=== PATIENT | female | born 1985 | race Caucasian/White ===

== ENCOUNTER 2016-09-23 23:34 | Inpatient (IN) | payer MEDICAID ==
[~2016-09-23] VITALS: Ht 157.5 cm; Wt 58.1 kg
[~2016-09-23 23:34] MED LIST: BENZ56AE TP; DCS100C PO; FRS325T PO; IBP600T1 PO; PREN1TAB19 PO
[2016-09-23] MEDS ORDERED: D5 LR IV SOLUTION 1,000 ML IV ONE (23:46)
[2016-09-23] MEDS ORDERED: OXYTOCIN/NORMAL SALINE 500 ML IV ONE (23:47)
[2016-09-23] MEDS ORDERED: LIDOCAINE/EPI 1%-1:200,000 (XYLOCAINE) 30 ML VIAL ONE (23:47)
[2016-09-23] MEDS ORDERED: D5 LR IV SOLUTION 1,000 ML IV SCH (23:50)
[2016-09-24] VITALS (10 sets, daily range): BP systolic 115–145; BP diastolic 73–92
[2016-09-24] MEDS ORDERED: MINERAL OIL CONCENTRATE 99.9% 15 ML UDC TOP PRN
[2016-09-24 00:12] LABS: BASOPHILS % (AUTO) 0 % (0-10); EOSINOPHILS % (AUTO) 0 % (0-10); LYMPHOCYTES # (AUTO) 1.2 X 10^3 (1.0-4.0); LYMPHOCYTES % (AUTO) 17 % (12-44); MEAN CORPUSCULAR HEMOGLOBIN 31 PG (25-34); MEAN CORPUSCULAR HGB CONC 33 G/DL (32-36); MEAN CORPUSCULAR VOLUME 92 FL (80-99); MEAN PLATELET VOLUME 11.5 FL (7.4-10.4); MONOCYTES # (AUTO) 0.5 X 10^3 (0.0-1.0); MONOCYTES % (AUTO) 7 % (0-12); NEUTROPHILS # (AUTO) 5.4 X 10^3 (1.8-7.8); NEUTROPHILS % (AUTO) 76 % (42-75); PLATELET COUNT 143 10^3/uL (130-400); RED BLOOD COUNT 3.83 10^6/uL (4.35-5.85); RED CELL DISTRIBUTION WIDTH 13.6 % (10.0-14.5); WHITE BLOOD COUNT 7.1 10^3/uL (4.3-11.0)
[2016-09-24] MEDS ORDERED: OXYTOCIN/NORMAL SALINE 500 ML IV ONE ×2 (00:26→00:50)
--- NOTE | 2016-09-24 00:35 | History & Physical-OB ---
OB - Chief Complaint & HPI Date Date of Admission: Date of Admission: Sep 23, 2016 at 23:49 Chief Complaint/History OB-Reason for Admission/Chief: Onset of Labor Hx : 5 Hx Para: 4 Expected Date of Delivery: Sep 28, 2016 Gestational Age in Weeks: 39 Gestational Age in Days: 3 Other reason for admission: 30 y/o @ 39w3d presenting with CTX since 2199 No LOF, no VB 8cm on admission, complete upon my presentation to her room and ready to push Denies any complications with Pt of Dr. Lin History of Labs O+ Antibody neg RI Hep B neg RPR NR HIV neg GC/CT neg/neg GBS neg Allergies and Home Medications Allergies Coded Allergies: No Known Drug Allergies (Unverified , 12/11/14) Home Medications Benzocaine/Menthol 56 Ml Aerosol, 56 ML TP UD PRN for PAIN, #1 Prescribed by: ILEANA MORRIS on 12/12/14 0950 Docusate Sodium 100 Mg Cap, 100 MG PO BID, #40 Prescribed by: ILEANA MORRIS on 12/12/14 0950 Ferrous Sulfate 325 Mg Tab, 325 MG PO DAILY, #60 Prescribed by: ILEANA MORRIS on 12/12/14 0950 Ibuprofen 600 Mg Tab, 600 MG PO Q6H, #60 Prescribed by: ILEANA MORRIS on 12/12/14 0950 Vit/Fe Fumarate/Fa 1 Each Tablet, 1 EACH PO DAILY, (Reported) OB - History Hx of Present Care: Yes Ultrasounds: Normal mid trimester US Obstetrical Complications: Other (h/o precipitous deliveries) Medical Complications: None Obstetrical History Hx : 5 Hx Para: 4 Hx Total # of Abortions (Spona: 0 Hx Maternal Gestational Diabet: Yes Delivery History Hx Dystocia: No Hx Small for Gestational Age I: Yes (IUGR) Hx Blood Disorders: No Adverse Rxn to Tranfusion: No Patient Past Medical History None Social History/Family History Recent Infectious Disease Expo: No Alcohol Use: Denies Use Recreational Drug Use: No OB - Admission Exam Physical Exam Vitals: per nursing documentation Abdomen: Gravid Cervical Dilatation: 10cm Effacement: 100% Station: +2 Membranes: Ruptured Amniotic Fluid: Clear Heart Rate: 130's Accelerations: Accelerations Present Decelerations: No Decelerations Short Term Variability: Present Contractions on Admission: < 5 Minutes Apart Labs Laboratory Tests Test 09/23/16 23:56 Range/Units White Blood Count 7.1 4.3-11.0 10^3/uL Red Blood Count 3.83 L 4.35-5.85 10^6/uL Hemoglobin 11.7 11.5-16.0 G/DL Hematocrit 35 35-52 % Mean Corpuscular Volume 92 80-99 FL Mean Corpuscular Hemoglobin 31 25-34 PG Mean Corpuscular Hemoglobin Concent 33 32-36 G/DL Red Cell Distribution Width 13.6 10.0-14.5 % Platelet Count 143 130-400 10^3/uL Mean Platelet Volume 11.5 H 7.4-10.4 FL Neutrophils (%) (Auto) 76 H 42-75 % Lymphocytes (%) (Auto) 17 12-44 % Monocytes (%) (Auto) 7 0-12 % Eosinophils (%) (Auto) 0 0-10 % Basophils (%) (Auto) 0 0-10 % Neutrophils # (Auto) 5.4 1.8-7.8 X 10^3 Lymphocytes # (Auto) 1.2 1.0-4.0 X 10^3 Monocytes # (Auto) 0.5 0.0-1.0 X 10^3 Eosinophils # (Auto) 0.0 0.0-0.3 10^3/uL Basophils # (Auto) 0.0 0.0-0.1 10^3/uL OB - Assessment/Plan/Diagnosis Plan Other Plan 30 y/o @ 39w3d with active labor, GBS neg Rh+ RI Underwent precipitous vaginal delivery upon my presentation Routine care Peds - Dr. Jacob GEE,ADAMA Carter MD Sep 24, 2016 00:35
--- NOTE | 2016-09-24 00:38 | OB Labor & Delivery Record ---
Vag Delivery Note Vag Delivery Note Date of Delivery: 09/24/16 Preoperative Diagnosis: Lupe Deras is a 30 y/o @ 39w3d with active labor, GBS neg Postoperative Diagnosis: Same plus precipitous vaginal delivery Surgeon: Adama Claudio MD Anesthesia: None Delivery Type: Spontaneous vaginal delivery Findings: Viable female infant, apgars 9/9, weight 8zy11es Lacerations: none Intact placenta with 3 vessel cord. No nuchal cord, body cord or shoulder dystocia Estimated Blood Loss: 300 ml Complications: None Condition: Stable Description of Procedure: The patient is a 30 y/o who presented @ 39w3d with active labor. She was admitted and informed consent was obtained. Her labor course was remarkable for AROM at complete dilatation with precipitous delivery less than 30 minutes from time of presentation. She progressed to complete dilatation and began to push. She was then set up for delivery. The 's head was delivered atraumatically in the occiput anterior position. The shoulders and remainder of the 's body were then delivered without difficulty. Upon delivery, the head was held below the level of the perineum and the mouth and nares were bulb suctioned. The infant was then placed on her mother's chest, crying vigorously. The cord was doubly clamped and cut after a brief pause of 30-60 seconds. An intact placenta with 3-vessel cord delivered via Ricardo and there was found to be minimal bleeding. Vigorous fundal massage was performed and the fundus was found to be firm. IV oxytocin was given. Examination of the vagina and perineum revealed no lacerations. Sponge and instrument counts were correct. Mom and baby were both in stable condition in the labor suite. Vitals - Labs Labs Laboratory Tests 09/23/16 23:56: White Blood Count 7.1, Red Blood Count 3.83L, Hemoglobin 11.7, Hematocrit 35, Mean Corpuscular Volume 92, Mean Corpuscular Hemoglobin 31, Mean Corpuscular Hemoglobin Concent 33, Red Cell Distribution Width 13.6, Platelet Count 143, Mean Platelet Volume 11.5H, Neutrophils (%) (Auto) 76H, Lymphocytes (%) (Auto) 17, Monocytes (%) (Auto) 7, Eosinophils (%) (Auto) 0, Basophils (%) (Auto) 0, Neutrophils # (Auto) 5.4, Lymphocytes # (Auto) 1.2, Monocytes # (Auto) 0.5, Eosinophils # (Auto) 0.0, Basophils # (Auto) 0.0 ADAMA CLAUDIO MD Sep 24, 2016 00:38
[2016-09-24] MEDS ORDERED: OXYTOCIN/NORMAL SALINE 500 ML IV SCH (00:48)
[2016-09-24] MEDS ORDERED: TETANUS,DIPTH,PERTUSS P/F (BOOSTRIX) 0.5 ML VIAL IM ONE (01:00)
[2016-09-24] MEDS ORDERED: WITCH HAZEL(TUCKS) 40 EA JAR TOP PRN (01:00)
[2016-09-24] MEDS ORDERED: MEASLES,MUMPS,RUBELLA 1 EA INJ SQ ONE (01:00)
[2016-09-24] MEDS ORDERED: BENZOCAINE/MENTHOL (DERMOPLAST) 56 ML CAN TP PRN (01:00)
[2016-09-24] MEDS: IBUPROFEN 600 MG (MOTRIN) TAB PO SCH ×4 (01:15→21:10)
[2016-09-24] MEDS ORDERED: CATHETER FLUSH 10 ML SYR IV SCH (06:00)
[2016-09-24] MEDS ORDERED: IBUP-1773 PO (08:33)
[2016-09-24] MEDS ORDERED: DOCU100C37 PO (08:33)
--- NOTE | 2016-09-24 08:34 | Discharge Inst-Women's Service ---
Discharge Inst-Women's Serv Depart Medication/Instructions New, Converted or Re-Newed RX: RX on Chart Final Diagnosis TIUP, active labor, precipitous Consults/Follow Up Additional Follow Up: Yes Orders/Referrals [address] Lin Activity Activity: Activity as Tolerated Driving Instructions: You May Drive NO SMOKING: NO SMOKING Nothing Inside Vagina: No Douching, No Bowen, No Tampons Diet Discharge Diet: No Restrictions Symptoms to Report to : Bleeding Excessive, Pain Increased, Fever Over 101 Degrees F, Pain/Pressure in Chest, Vaginal Bleeding Increase, Dizziness/Fainting , Nausea/Vomiting, Shortness of Breath For Any Problems or Questions: Contact Your Physician ADAMA GEE MD Sep 24, 2016 08:34
[2016-09-24] MEDS: PRENATAL VITAMIN 1 EA TAB PO SCH (09:51)
[2016-09-24] MEDS: DOCUSATE SODIUM 100 MG (COLACE) CAP PO SCH ×2 (09:51→21:09)
[2016-09-24] MEDS: FERROUS SULF 325 MG (IRON) TAB PO SCH (12:07)
[2016-09-25 02:30] VITALS: BP 111/65
[2016-09-25 05:39] LABS: BASOPHILS % (AUTO) 0 % (0-10); EOSINOPHILS # (AUTO) 0.1 10^3/uL (0.0-0.3); EOSINOPHILS % (AUTO) 2 % (0-10); LYMPHOCYTES # (AUTO) 1.5 X 10^3 (1.0-4.0); LYMPHOCYTES % (AUTO) 18 % (12-44); MEAN CORPUSCULAR HEMOGLOBIN 30 PG (25-34); MEAN CORPUSCULAR HGB CONC 32 G/DL (32-36); MEAN CORPUSCULAR VOLUME 93 FL (80-99); MEAN PLATELET VOLUME 11.4 FL (7.4-10.4); MONOCYTES # (AUTO) 0.7 X 10^3 (0.0-1.0); MONOCYTES % (AUTO) 9 % (0-12); NEUTROPHILS # (AUTO) 5.8 X 10^3 (1.8-7.8); NEUTROPHILS % (AUTO) 71 % (42-75); PLATELET COUNT 137 10^3/uL (130-400); RED BLOOD COUNT 3.36 10^6/uL (4.35-5.85); RED CELL DISTRIBUTION WIDTH 13.6 % (10.0-14.5); WHITE BLOOD COUNT 8.2 10^3/uL (4.3-11.0)
[2016-09-25] MEDS: IBUPROFEN 600 MG (MOTRIN) TAB PO SCH (05:41)
[2016-09-25 08:25] VITALS: BP 129/87
[2016-09-25] MEDS: DOCUSATE SODIUM 100 MG (COLACE) CAP PO SCH (08:43)
[2016-09-25] MEDS: PRENATAL VITAMIN 1 EA TAB PO SCH (08:43)
[2016-09-25] MEDS: FERROUS SULF 325 MG (IRON) TAB PO SCH (08:43)
--- NOTE | 2016-09-25 09:30 | Postpartum Progress Note ---
Note Note Day # 1 Subjective: Patient is without complaints. Ambulating, voiding. Tolerating a regular diet without nausea or vomiting. Normal lochia. Pain is well controlled with oral pain medications. Wants to d/c home today. Objective: VS - Last 72 Hours, by Label 09/24/16 09/24/16 09/24/16 09/24/16 00:25 00:40 00:55 01:10 Temp 98.3 Pulse 81 75 74 68 Resp 18 18 18 18 B/P (MAP) 139/92 145/86 144/86 O2 Delivery Room Air Room Air Room Air Room Air 09/24/16 09/24/16 09/24/16 09/24/16 01:23 01:54 04:04 08:00 Temp 97.8 97.1 Pulse 74 68 65 87 Resp 18 18 18 18 B/P (MAP) 132/81 119/76 115/73 130/84 Pulse Ox 99 98 O2 Delivery Room Air Room Air Room Air Room Air 09/24/16 09/24/16 09/24/16 09/25/16 12:00 16:00 20:30 02:30 Temp 96.9 96.9 97.6 97.3 Pulse 69 65 76 61 Resp 18 18 16 16 B/P (MAP) 119/76 132/79 134/81 111/65 Pulse Ox 98 97 98 98 O2 Delivery Room Air Room Air Room Air Room Air 09/25/16 08:25 Temp 97.8 Pulse 87 Resp 16 B/P (MAP) 129/87 O2 Delivery Room Air Physical Exam: General - Alert and oriented, no apparent distress Abdomen - Soft, appropriately tender to palpation, non-distended, fundus firm at umbilicus Extremities - no edema, negative Kelsea's bilaterally Laboratory Tests Test 09/25/16 05:30 Range/Units White Blood Count 8.2 4.3-11.0 10^3/uL Red Blood Count 3.36 L 4.35-5.85 10^6/uL Hemoglobin 10.1 L 11.5-16.0 G/DL Hematocrit 31 L 35-52 % Mean Corpuscular Volume 93 80-99 FL Mean Corpuscular Hemoglobin 30 25-34 PG Mean Corpuscular Hemoglobin Concent 32 32-36 G/DL Red Cell Distribution Width 13.6 10.0-14.5 % Platelet Count 137 130-400 10^3/uL Mean Platelet Volume 11.4 H 7.4-10.4 FL Neutrophils (%) (Auto) 71 42-75 % Lymphocytes (%) (Auto) 18 12-44 % Monocytes (%) (Auto) 9 0-12 % Eosinophils (%) (Auto) 2 0-10 % Basophils (%) (Auto) 0 0-10 % Neutrophils # (Auto) 5.8 1.8-7.8 X 10^3 Lymphocytes # (Auto) 1.5 1.0-4.0 X 10^3 Monocytes # (Auto) 0.7 0.0-1.0 X 10^3 Eosinophils # (Auto) 0.1 0.0-0.3 10^3/uL Basophils # (Auto) 0.0 0.0-0.1 10^3/uL Assessment: 30 y/o post- day # 1, status post spontaneous vaginal delivery. Recovering well, hemodynamically stable Acute blood loss anemia Hgb 10.1 Rh+ Plan: Routine care. Encourage breast feeding. Encourage ambulation. Ferrous sulfate supplementation. Plan for discharge tomorrow. Vitals - Labs Vital Signs - I&O Vital Signs Date Time Temp Pulse Resp B/P (MAP) Pulse Ox O2 Delivery O2 Flow Rate FiO2 09/25/16 08:25 97.8 87 16 129/87 Room Air 09/25/16 02:30 97.3 61 16 111/65 98 Room Air 09/24/16 20:30 97.6 76 16 134/81 98 Room Air 09/24/16 16:00 96.9 65 18 132/79 97 Room Air 09/24/16 12:00 96.9 69 18 119/76 98 Room Air Labs Laboratory Tests 09/25/16 05:30: White Blood Count 8.2, Red Blood Count 3.36L, Hemoglobin 10.1L, Hematocrit 31L, Mean Corpuscular Volume 93, Mean Corpuscular Hemoglobin 30, Mean Corpuscular Hemoglobin Concent 32, Red Cell Distribution Width 13.6, Platelet Count 137, Mean Platelet Volume 11.4H, Neutrophils (%) (Auto) 71, Lymphocytes (%) (Auto) 18 , Monocytes (%) (Auto) 9, Eosinophils (%) (Auto) 2, Basophils (%) (Auto) 0, Neutrophils # (Auto) 5.8, Lymphocytes # (Auto) 1.5, Monocytes # (Auto) 0.7, Eosinophils # (Auto) 0.1, Basophils # (Auto) 0.0 ADAMA GEE MD Sep 25, 2016 09:30
[2016-09-25] MEDS ORDERED: FERR-74 PO (09:31)
== END 2016-09-25 12:10 | disposition home or self-care (01) | DRG 775 ==
LOC: LDRP 23:34 → WSo 23:34 → LDRP 23:49 → WSo 23:49 → LDRP 09-24 02:20
PROVIDERS: ADMIT Obstetrics & Gynecology; ATTEND Obstetrics & Gynecology
PROC: 10E0XZZ Delivery of Products of Conception, External Approach (ICD-10-PCS; principal; 2016-09-24)
DX: O62.3 Precipitate labor (principal); Z3A.39 39 weeks gestation of pregnancy; Z37.0 Single live birth; O90.81 Anemia of the puerperium; D62 Acute posthemorrhagic anemia
CPT/HCPCS: 36415; 85025; 86850; 86900; 86901; 99212

== ENCOUNTER → 2017-12-29 | Outpatient (CLI) | payer MEDICAID ==
[~2017-12-29] MED LIST changes: +DOCU100C37 PO; +FERR325T18 PO; +IBUP-1773 PO
--- NOTE | 2017-12-29 15:30 | Diagnostic Imaging Report ---
INDICATION: survey. TECHNIQUE: Multiple real-time grayscale images were obtained over the gravid uterus. COMPARISON: None during this . FINDINGS: A single live intrauterine fetus is seen measuring 20 weeks 1 day in size with sonographic EDC of 05/17/2018. The fetus is in transverse presentation. There is no evidence of placenta previa, placental is posterior and grade 1. Amniotic fluid is qualitatively normal. There is heart rate of 126 beats per minute. survey shows some limitation with four-chamber heart view and cord insertion and spine not well-seen. kidneys and bladder and stomach and intracranial structures were unremarkable. Three-vessel cord is noted. Maternal adnexa were not visualized. Biometrical measurements are as follows: Biparietal 4.83 cm, age 20 weeks 5 days. Head circumference 16.92 cm, age 19 weeks 4 days. Abdominal circumference 15.19 cm, age 20 weeks 3 days. Femur length 3.06 cm, age 19 weeks 4 days. Sonographic estimate age: 20 weeks 1 days. Sonographic estimated date of delivery: 05/17/18. Estimated Weight: 323 gm (+/- 47 gm). LMP percentile: 51%. heart rate: 126 beats per minute. number: 1 of 1. IMPRESSION: Single live intrauterine fetus measuring 20 weeks 1 day in size. There was no detectable abnormality although portions of the anatomy such as the four-chamber heart view and cord insertion and spine were not well-seen. Consider limited followup as clinically warranted. Dictated by: Dictated on workstation # [id number]
== END ==
LOC: RAD 12:18
PROVIDERS: ATTEND Obstetrics & Gynecology
DX: Z36.89 Encounter for other specified antenatal screening (principal); Z3A.20 20 weeks gestation of pregnancy
CPT/HCPCS: 76805

== ENCOUNTER → 2018-03-01 | Outpatient (CLI) | payer MEDICAID ==
--- NOTE | 2018-03-01 16:28 | Diagnostic Imaging Report ---
INDICATION: survey. TECHNIQUE: Multiple real-time grayscale images were obtained over the gravid uterus. COMPARISON: 12/29/2017. FINDINGS: The previous OB ultrasound exam of 12/29/2017 noted a single live fetus of approximately 20 weeks 1 day gestation +/- 1 week. There were no abnormalities identified, but the four-chamber heart view, cord insertion, and spine were not well imaged. On this exam, the fetus is again visualized. The fetus is cephalic in presentation. heart motion was noted with a rate of 134 bpm recorded. There are no abnormalities identified. In particular, the four-chamber heart view, the cord insertion, and the spine appear to be within normal limits. The growth parameters are not obtained for this exam. The placenta is fundal and posterior and there is no previa. The amniotic fluid volume is within normal limits. IMPRESSION: 1. There is a single live fetus of approximately 28 weeks 5 days gestation +/- 1.5 weeks. The EDC is May 16, 2018. 2. There are no abnormalities identified. In particular, the four-chamber heart view, the cord insertion, and the spine appear to be within normal limits. Dictated by: Dictated on workstation # [id number]
== END ==
LOC: RAD 09:02
PROVIDERS: ATTEND Obstetrics & Gynecology
DX: Z36.89 Encounter for other specified antenatal screening (principal); Z3A.28 28 weeks gestation of pregnancy
CPT/HCPCS: 76816

== ENCOUNTER 2018-05-11 07:42 | Inpatient (IN) | payer MEDICAID ==
[2018-05-11] VITALS (42 sets, daily range): BP systolic 101–141; BP diastolic 57–97
[~2018-05-11] VITALS: Ht 157.5 cm; Wt 59.0 kg
[2018-05-11] MEDS ORDERED: D5 LR IV SOLUTION 1,000 ML IV SCH (08:52)
--- NOTE | 2018-05-11 08:56 | History & Physical-OB ---
OB - Chief Complaint & HPI Date/Time Date of Admission: Date of Admission: 05/11/18 Date seen by a Provider: May 11, 2018 Time Seen by a Provider: 08:20 Chief Complaint/History OB-Reason for Admission/Chief: Onset of Labor Hx : 6 Hx Para: 5 Expected Date of Delivery: May 19, 2018 Gestational Age in Weeks: 38 Gestational Age in Days: 6 Other reason for admission: Patient presents to labor and delivery for complaint of contractions. On admission she was 3 cm dilated/60% effaced. She was danny regularly about every 6 minutes. She is admitted for labor. She has had an uncomplicated Admission Nurse Assessment Rev: Yes History of Labs o+/antibody - VRDL NR HIV - Hep B and C - HIV - GBS - Rubella I Other was uncomplicated She declined TDaP and Flu vaccine Allergies and Home Medications Allergies Coded Allergies: No Known Drug Allergies (Unverified , 12/11/14) Home Medications Ferrous Sulfate 325 Mg Tablet, 325 MG PO DAILY Prescribed by: ADAMA GEE on 09/25/16 0931 Vit/Fe Fumarate/Fa 1 Each Tablet, 1 EACH PO DAILY, (Reported) Patient Home Medication List Home Medication List Reviewed: Yes OB - History Hx of Present Care: Yes Ultrasounds: Normal mid trimester US Obstetrical Complications: None (abnormal 1 hour and 1 value abnormal in the 3 hour test. non diagnostic of gestational diabetes) Medical Complications: None Information Induced Hypertension: No Maternal Gestational Diabetes: No Hemorrhage: No Obstetrical History Hx : 6 Hx Para: 5 Hx # Term Pregnancies: 5 Hx Total # of Abortions (Spona: 0 Hx Complication: No Hx Maternal Gestational Diabet: No Delivery History Hx Dystocia: No Hx Small for Gestational Age I: Yes (IUGR) Hx Blood Disorders: No Adverse Rxn to Tranfusion: No Patient Past Medical History None Social History/Family History Recent Infectious Disease Expo: No Sexually Transmitted Disease: No Alcohol Use: Denies Use Recreational Drug Use: No Smoking Cessation: Never smoker 2nd Hand Smoke Exposure: No Immunizations Hepatitis A: No Hepatitis B: Yes Tetanus Booster (TDap): Unknown Rubella: immune RPR/VDRL: Negative GBS Status: Negative HBsAG: Negative OB - Admission Exam Physical Exam Heart: Rhythm Normal Lungs: Clear Abdomen: Gravid Extremities: Normal Cervical Dilatation: 3cm Effacement: 50% Station: -1 Membranes: Intact Amniotic Fluid: Clear Heart Rate: 140's Accelerations: Accelerations Present Decelerations: No Decelerations Short Term Variability: Present Tool Maker Apprentice Variability: Average (6-25) Contractions on Admission: 6-10 Minutes Apart OB - Assessment/Plan/Diagnosis Assessment Assessment: active labor Admission Dx Labor history of precipitous delivery 38 6/7 weeks of Admission Status: Inpatient Order (span 2 midnights) Reason for Inpatient Admission: labor LYDIA VERMA DO May 11, 2018 08:56
[2018-05-11] MEDS ORDERED: MINERAL OIL CONCENTRATE 99.9% 15 ML UDC TOP PRN (09:00)
[2018-05-11] MEDS ORDERED: FLU QUADRIvalent (5+ YOA) 2018-2019 (AFLURIA) 0.5 ML IM ONE (09:15)
--- OUTSIDE RECORDS SUMMARY | 2018-05-11 09:45 | XMS REPORT | Continuity of Care Document ---
Author Author [facility] Organization [facility] Address Unknown Phone Unavailable Allergies Active Description Code Type Severity Reaction Onset Reported/Identified Relationship to Patient Clinical Status Yes No Known Drug Allergies [id number] Drug Allergy Unknown N/A 12/11/2014 Medications There is no data. Problems Date Dx Coded Attending Type Code Diagnosis Diagnosed By 07/28/2014 Ot V28.89 09/09/2014 LYDIA VERMA DO Ot 759.7 09/09/2014 LYDIA VERMA DO Ot V22.2 09/11/2014 Ot V28.89 12/12/2014 LYDIA VERMA DO Ot 656.51 12/12/2014 LYDIA VERMA DO Ot 661.31 PRECIPITATE LABOR-DELIV 12/12/2014 LYDIA VERMA DO Ot 663.31 CORD ENTANGLE NEC-DELIV 12/12/2014 LYDIA VERMA DO Ot V06.1 12/12/2014 LYDIA VERMA DO Ot V06.4 12/12/2014 LYDIA VERMA DO Ot V27.0 DELIVER-SINGLE LIVEBORN 07/20/2015 LYDIA VERMA DO Ot 759.7 07/20/2015 LYDIA VERMA DO Ot V22.2 09/25/2016 MARLEN WHITT, ADAMA Carter Ot D62 ACUTE POSTHEMORRHAGIC ANEMIA 09/25/2016 ADAMA GEE MD Ot O62.3 PRECIPITATE LABOR 09/25/2016 MARLEN WHITT, ADAMA Carter Ot O90.81 ANEMIA OF THE PUERPERIUM 09/25/2016 MARLEN WHITT, ADAMA Carter Ot Z37.0 SINGLE LIVE 09/25/2016 ADAMA GEE MD Ot Z3A.39 39 WEEKS GESTATION OF 01/01/2018 LYDIA VERMA DO Ot Z36.89 ENCOUNTER FOR OTHER SPECIFIED 01/01/2018 VERMA DO, LYDIA C Ot Z3A.20 20 WEEKS GESTATION OF 01/01/2018 VERMA DO, LYDIA C Ot Z36.89 ENCOUNTER FOR OTHER SPECIFIED 01/01/2018 VERMA DO, LYDIA C Ot Z3A.20 20 WEEKS GESTATION OF 02/09/2018 VERMA DO, LYDIA C Ot Z36.89 ENCOUNTER FOR OTHER SPECIFIED 02/09/2018 VERMA DO, LYDIA C Ot Z3A.20 20 WEEKS GESTATION OF 03/01/2018 VERMA DO, LYDIA C Ot 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 03/01/2018 VERMA DO, LYDIA C Ot V22.2 PREG STATE, INCIDENTAL 03/01/2018 VERMA DO, LYDIA C Ot Z36.89 ENCOUNTER FOR OTHER SPECIFIED 03/01/2018 VERMA DO, LYDIA C Ot Z3A.20 20 WEEKS GESTATION OF 03/02/2018 VERMA DO, LYDIA C Ot Z36.89 ENCOUNTER FOR OTHER SPECIFIED 03/02/2018 VERMA DO, LYDIA C Ot Z3A.28 28 WEEKS GESTATION OF 03/07/2018 VERMA DO, LYDIA C Ot Z36.89 ENCOUNTER FOR OTHER SPECIFIED 03/07/2018 VERMA DO, LYDIA C Ot Z3A.28 28 WEEKS GESTATION OF 05/03/2018 Ot V28.89 OTHER SPECIFIED SCREENING 05/03/2018 VERMA DO, LYDIA C Ot Z36.89 ENCOUNTER FOR OTHER SPECIFIED 05/03/2018 VERMA DO, LYDIA C Ot Z3A.20 20 WEEKS GESTATION OF Procedures Code Description Performed By Performed On 73.59 MANUAL ASSIST DELIV NEC 12/11/2014 [id number] DELIVERY OF PRODUCTS OF CONCEPTION, EXTE 09/24/2016 Results Test Result Range Complete blood count (CBC) with automated white blood cell (WBC) differential - 09/23/16 23:56 Blood leukocytes automated count (number/volume) 7.1 10*3/uL 4.3-11.0 Blood erythrocytes automated count (number/volume) 3.83 10*6/uL 4.35-5.85 Venous blood hemoglobin measurement (mass/volume) 11.7 g/dL 11.5-16.0 Blood hematocrit (volume fraction) 35 % 35-52 Automated erythrocyte mean corpuscular volume 92 [foz_us] 80-99 Automated erythrocyte mean corpuscular hemoglobin (mass per erythrocyte) 31 pg 25-34 Automated erythrocyte mean corpuscular hemoglobin concentration measurement ( mass/volume) 33 g/dL 32-36 Automated erythrocyte distribution width ratio 13.6 % 10.0-14.5 Automated blood platelet count (count/volume) 143 10*3/uL 130-400 Automated blood platelet mean volume measurement 11.5 [foz_us] 7.4-10.4 Automated blood neutrophils/100 leukocytes 76 % 42-75 Automated blood lymphocytes/100 leukocytes 17 % 12-44 Blood monocytes/100 leukocytes 7 % 0-12 Automated blood eosinophils/100 leukocytes 0 % 0-10 Automated blood basophils/100 leukocytes 0 % 0-10 Blood neutrophils automated count (number/volume) 5.4 10*3 1.8-7.8 Blood lymphocytes automated count (number/volume) 1.2 10*3 1.0-4.0 Blood monocytes automated count (number/volume) 0.5 10*3 0.0-1.0 Automated eosinophil count 0.0 10*3/uL 0.0-0.3 Automated blood basophil count (count/volume) 0.0 10*3/uL 0.0-0.1 Blood type T Indirect antibody screen panel - 09/23/16 23:56 ABO+Rh group OP NRG Transfusion band number [id number] [facility] Blood group antibody screen NEGATIVE [facility] Complete blood count (CBC) with automated white blood cell (WBC) differential - 09/25/16 05:30 Blood leukocytes automated count (number/volume) 8.2 10*3/uL 4.3-11.0 Blood erythrocytes automated count (number/volume) 3.36 10*6/uL 4.35-5.85 Venous blood hemoglobin measurement (mass/volume) 10.1 g/dL 11.5-16.0 Blood hematocrit (volume fraction) 31 % 35-52 Automated erythrocyte mean corpuscular volume 93 [foz_us] 80-99 Automated erythrocyte mean corpuscular hemoglobin (mass per erythrocyte) 30 pg 25-34 Automated erythrocyte mean corpuscular hemoglobin concentration measurement ( mass/volume) 32 g/dL 32-36 Automated erythrocyte distribution width ratio 13.6 % 10.0-14.5 Automated blood platelet count (count/volume) 137 10*3/uL 130-400 Automated blood platelet mean volume measurement 11.4 [foz_us] 7.4-10.4 Automated blood neutrophils/100 leukocytes 71 % 42-75 Automated blood lymphocytes/100 leukocytes 18 % 12-44 Blood monocytes/100 leukocytes 9 % 0-12 Automated blood eosinophils/100 leukocytes 2 % 0-10 Automated blood basophils/100 leukocytes 0 % 0-10 Blood neutrophils automated count (number/volume) 5.8 10*3 1.8-7.8 Blood lymphocytes automated count (number/volume) 1.5 10*3 1.0-4.0 Blood monocytes automated count (number/volume) 0.7 10*3 0.0-1.0 Automated eosinophil count 0.1 10*3/uL 0.0-0.3 Automated blood basophil count (count/volume) 0.0 10*3/uL 0.0-0.1 Encounters ACCT No. Visit Date/Time Discharge Status Pt. Type Provider Facility Loc./Unit Complaint [id number] 03/01/2018 09:02:00 03/01/2018 23:59:59 CLS Outpatient LYDIA VERMA DO [facility] RAD EVALUATE ANATOMY NOT SEEN ON PRIOR SONOGRAM [id number] 12/29/2017 12:18:00 12/29/2017 23:59:59 CLS Outpatient LYDIA VERMA DO [facility] RAD 19 WEEKS GESTATION OF [id number] 09/23/2016 23:49:00 09/25/2016 12:10:00 DIS Inpatient ADAMA GEE MD [facility] LDRP LABOR [id number] 12/11/2014 02:35:00 12/12/2014 14:05:00 DIS Inpatient LYDIA VERMA DO [facility] LDRP LABOR [id number] 09/04/2014 12:05:00 09/04/2014 23:59:59 CLS Outpatient LYDIA VERMA DO [facility] RAD ANOMALY [id number] 07/24/2014 10:18:00 Document Registration
[2018-05-11 09:53] LABS: BASOPHILS % (AUTO) 0 % (0-10); EOSINOPHILS % (AUTO) 0 % (0-10); HEMATOCRIT 35 % (35-52); HEMOGLOBIN 11.6 G/DL (11.5-16.0); LYMPHOCYTES # (AUTO) 1.4 X 10^3 (1.0-4.0); LYMPHOCYTES % (AUTO) 18 % (12-44); MEAN CORPUSCULAR HEMOGLOBIN 31 PG (25-34); MEAN CORPUSCULAR HGB CONC 33 G/DL (32-36); MEAN CORPUSCULAR VOLUME 95 FL (80-99); MONOCYTES # (AUTO) 0.7 X 10^3 (0.0-1.0); MONOCYTES % (AUTO) 10 % (0-12); NEUTROPHILS # (AUTO) 5.5 X 10^3 (1.8-7.8); NEUTROPHILS % (AUTO) 72 % (42-75); PLATELET COUNT 178 10^3/uL (130-400); RED BLOOD COUNT 3.71 10^6/uL (4.35-5.85); RED CELL DISTRIBUTION WIDTH 13.4 % (10.0-14.5); WHITE BLOOD COUNT 7.6 10^3/uL (4.3-11.0)
[2018-05-11] MEDS ORDERED: SUFENTA 0.6MCG/ML BUPIVA 0.125 100 ML ONE (10:57)
[2018-05-11] MEDS ORDERED: OXYTOCIN/NORMAL SALINE 500 ML IV SCH (12:02)
[2018-05-11] MEDS ORDERED: LACTATED RINGERS 1,000 ML IV SCH (12:13)
[2018-05-11] MEDS ORDERED: diphenhydrAMINE 50 MG/ML INJ (BENADRYL) IV PRN (12:15)
[2018-05-11] MEDS ORDERED: NALOXONE 0.4 MG/ML 1 ML (NARCAN) VIAL IV PRN ×2 (12:15)
[2018-05-11] MEDS ORDERED: EPIDURAL (SUFENTA 0.6MCG/ML BUPIVA 0.125%) 100 ML BAG EPI SCH (12:15)
[2018-05-11] MEDS ORDERED: ONDANSETRON 4 MG/2 ML (SDV) Z0FRAN IV PRN (12:15)
[2018-05-11] MEDS ORDERED: METOCLOPRAMIDE INJ 10 MG/2 ML (REGLAN) IV PRN (12:15)
[2018-05-11 13:27] LABS: BILIRUBIN,URINE NEGATIVE (NEGATIVE); CLARITY,URINE CLEAR; COLOR,URINE YELLOW; GLUCOSE, URINE (UA) NEGATIVE (NEGATIVE); KETONES,URINE NEGATIVE (NEGATIVE); LEUKOCYTE ESTERASE ,URINE NEGATIVE (NEGATIVE); NITRITE,URINE NEGATIVE (NEGATIVE); PH,URINE 6.5 (5-9); PROTEIN,URINE NEGATIVE (NEGATIVE); UROBILINOGEN,URINE NORMAL (NORMAL)
[2018-05-11 13:34] LABS: BACTERIA,URINE NEGATIVE /HPF
[2018-05-11] MEDS ORDERED: LIDOCAINE PF 2% 5 ML (XYLOCAINE) VIAL ONE (14:45)
--- NOTE | 2018-05-11 16:15 | OB Labor & Delivery Record ---
Vag Delivery Note Vag Delivery Note Date of Delivery: 05/11/18 Preoperative Diagnosis: Lupe Deras is a 32 /Para 6 / 5, Gestational Age 38 6/7 weeks in labor Postoperative Diagnosis: Same Surgeon: LYDIA VERMA Anesthesia: epidural Delivery Type: spontaneous vaginal Findings: Viable male infant, apgars 9/9, weight pending Lacerations: none Intact placenta with 3 vessel cord. Nuchal /body cord x 1 delivered through. No shoulder dystocia Estimated Blood Loss: 50 ml Complications: None Condition: Stable Description of Procedure: The patient is a 32 /Para 6 / 5,Gestational Age 38 6/7 weeks in labor. She was admitted and informed consent was obtained. Her labor course was remarkable for epidural, AROM and pitocin augmentation. She progressed to complete dilatation and began to push. She was then set up for delivery. The infant's head was delivered atraumatically in the NICA position. The shoulders and remainder of the infant's body were then delivered without difficulty. Upon delivery, the head was held below the level of the perineum and the mouth and nares were bulb suctioned. The cord was doubly clamped and cut and the was handed off to the pediatric staff. An intact placenta with 3-vessel cord delivered via Ricardo and there was found to be minimal bleeding.~ Vigorous fundal massage was performed and the fundus was found to be firm. IV oxytocin was given. Examination of the vagina and perineum revealed no laceration. Following the delivery, sponge, instrument and needle counts were correct. Mom and baby were both in stable condition in the labor suite. Vitals - Labs Vital Signs - I&O Vital Signs Date Time Temp Pulse Resp B/P (MAP) Pulse Ox O2 Delivery O2 Flow Rate FiO2 05/11/18 15:00 78 18 124/97 (106) 100 Room Air 05/11/18 14:45 57 18 111/71 (84) 100 Room Air 05/11/18 14:30 55 18 105/63 (77) 99 Room Air 05/11/18 14:20 57 18 115/77 (90) 99 Room Air 05/11/18 14:15 64 18 120/80 (93) 100 Room Air 05/11/18 14:00 68 18 115/77 (90) 100 Room Air 05/11/18 13:45 60 18 120/79 (93) 100 Room Air 05/11/18 13:30 64 18 116/79 (91) 99 Room Air 05/11/18 13:15 63 18 115/73 (87) 98 Room Air 05/11/18 13:00 60 18 120/77 (91) 99 Room Air 05/11/18 12:45 62 18 113/74 (87) 99 Room Air 05/11/18 12:30 78 18 113/77 (89) 99 Room Air 05/11/18 12:15 75 20 113/78 (90) 99 Room Air 05/11/18 12:10 64 18 116/74 (88) 100 Room Air 05/11/18 12:03 86 18 117/78 (91) 100 Room Air 05/11/18 12:00 67 20 114/73 (87) 100 Room Air 05/11/18 11:56 67 20 114/73 (87) 100 Room Air 05/11/18 11:52 75 20 116/71 (86) 100 Room Air 05/11/18 11:48 70 18 113/74 (87) 100 Room Air 05/11/18 11:45 79 18 122/78 (93) 100 Room Air 05/11/18 11:40 68 18 120/76 (91) 100 Room Air 05/11/18 11:35 89 18 141/93 (109) 100 Room Air 05/11/18 11:30 93 18 130/88 (102) 100 Room Air 05/11/18 11:15 63 18 107/70 (82) Room Air 05/11/18 11:00 64 18 129/76 (93) Room Air 05/11/18 10:15 67 18 121/79 (93) Room Air 05/11/18 09:45 75 18 120/70 (87) Room Air 05/11/18 09:15 Room Air 05/11/18 09:00 98.0 77 16 123/77 (92) Room Air Labs Laboratory Tests 05/11/18 09:40: White Blood Count 7.6, Red Blood Count 3.71L, Hemoglobin 11.6, Hematocrit 35, Mean Corpuscular Volume 95, Mean Corpuscular Hemoglobin 31, Mean Corpuscular Hemoglobin Concent 33, Red Cell Distribution Width 13.4, Platelet Count 178, Mean Platelet Volume 11.0H, Neutrophils (%) (Auto) 72, Lymphocytes (%) (Auto) 18 , Monocytes (%) (Auto) 10, Eosinophils (%) (Auto) 0, Basophils (%) (Auto) 0, Neutrophils # (Auto) 5.5, Lymphocytes # (Auto) 1.4, Monocytes # (Auto) 0.7, Eosinophils # (Auto) 0.0, Basophils # (Auto) 0.0 05/11/18 12:30: Urine Color YELLOW, Urine Clarity CLEAR, Urine pH 6.5, Urine Specific [place] 1.010L, Urine Protein NEGATIVE, Urine Glucose (UA) NEGATIVE, Urine Ketones NEGATIVE, Urine Nitrite NEGATIVE, Urine Bilirubin NEGATIVE, Urine Urobilinogen NORMAL, Urine Leukocyte Esterase NEGATIVE, Urine RBC (Auto) NEGATIVE, Urine RBC NONE, Urine WBC NONE, Urine Squamous Epithelial Cells 2-5, Urine Crystals NONE, Urine Bacteria NEGATIVE, Urine Casts NONE, Urine Mucus NEGATIVE, Urine Culture Indicated NO LYDIA VERMA DO May 11, 2018 16:15
[2018-05-11] MEDS ORDERED: ACET-2267 PO (16:29)
[2018-05-11] MEDS ORDERED: IBUP-1773 PO (16:29)
--- NOTE | 2018-05-11 16:30 | Discharge Inst-Women's Service ---
Discharge Inst-Women's Serv Depart Medication/Instructions New, Converted or Re-Newed RX: RX on Chart Final Diagnosis active labor vaginal delivery epidural Consults/Follow Up Additional Follow Up: Yes ([address] Verma) Activity Activity: Activity as Tolerated Driving Instructions: You May Drive NO SMOKING: NO SMOKING Nothing Inside Vagina: No Douching, No Trion, No Tampons Diet Discharge Diet: No Restrictions Symptoms to Report to : Bleeding Excessive, Pain Increased, Fever Over 101 Degrees F, Vaginal Bleeding Increase, Cramps in Feet or Legs, Vaginal Discharge Foul For Any Problems or Questions: Contact Your Physician LYDIA VERMA DO May 11, 2018 16:30
[2018-05-11] MEDS ORDERED: IBUPROFEN 600 MG (MOTRIN) TAB PO ONE (19:08)
[2018-05-11] MEDS: IBUPROFEN 600 MG (MOTRIN) TAB PO SCH (19:13)
[2018-05-11] MEDS ORDERED: ACETAMINOPHEN 500 MG TAB (TYLENOL) PO PRN (19:15)
[2018-05-12 00:12] VITALS: BP 109/72
[2018-05-12] MEDS: IBUPROFEN 600 MG (MOTRIN) TAB PO SCH ×3 (00:12→14:26)
[2018-05-12 04:55] VITALS: BP 106/62
[2018-05-12 08:15] VITALS: BP 123/76
[2018-05-12 08:20] LABS: BASOPHILS % (AUTO) 0 % (0-10); EOSINOPHILS % (AUTO) 0 % (0-10); HEMATOCRIT 33 % (35-52); HEMOGLOBIN 11.1 G/DL (11.5-16.0); LYMPHOCYTES # (AUTO) 1.2 X 10^3 (1.0-4.0); LYMPHOCYTES % (AUTO) 12 % (12-44); MEAN CORPUSCULAR HEMOGLOBIN 32 PG (25-34); MEAN CORPUSCULAR HGB CONC 33 G/DL (32-36); MEAN CORPUSCULAR VOLUME 95 FL (80-99); MEAN PLATELET VOLUME 10.7 FL (7.4-10.4); MONOCYTES # (AUTO) 0.7 X 10^3 (0.0-1.0); MONOCYTES % (AUTO) 7 % (0-12); NEUTROPHILS # (AUTO) 7.7 X 10^3 (1.8-7.8); NEUTROPHILS % (AUTO) 80 % (42-75); PLATELET COUNT 171 10^3/uL (130-400); RED BLOOD COUNT 3.49 10^6/uL (4.35-5.85); RED CELL DISTRIBUTION WIDTH 13.5 % (10.0-14.5); WHITE BLOOD COUNT 9.7 10^3/uL (4.3-11.0)
--- NOTE | 2018-05-12 09:25 | Postpartum Progress Note ---
Note Note Day # 1 Subjective: Patient is without complaints. Ambulating, voiding. Tolerating a regular diet without nausea or vomiting. Normal lochia. Pain is well controlled with oral pain medications. Objective: Vital Sign - Last 24 Hours 05/11/18 05/11/18 05/11/18 05/11/18 09:45 10:15 11:00 11:15 Pulse 75 67 64 63 Resp 18 18 18 18 B/P (MAP) 120/70 (87) 121/79 (93) 129/76 (93) 107/70 (82) O2 Delivery Room Air Room Air Room Air Room Air 05/11/18 05/11/18 05/11/18 05/11/18 11:30 11:35 11:40 11:45 Pulse 93 89 68 79 Resp 18 18 18 18 B/P (MAP) 130/88 (102) 141/93 (109) 120/76 (91) 122/78 (93) Pulse Ox 100 100 100 100 O2 Delivery Room Air Room Air Room Air Room Air 05/11/18 05/11/18 05/11/18 05/11/18 11:48 11:52 11:56 12:00 Pulse 70 75 67 67 Resp 18 20 20 20 B/P (MAP) 113/74 (87) 116/71 (86) 114/73 (87) 114/73 (87) Pulse Ox 100 100 100 100 O2 Delivery Room Air Room Air Room Air Room Air 05/11/18 05/11/18 05/11/18 05/11/18 12:03 12:10 12:15 12:30 Pulse 86 64 75 78 Resp 18 18 20 18 B/P (MAP) 117/78 (91) 116/74 (88) 113/78 (90) 113/77 (89) Pulse Ox 100 100 99 99 O2 Delivery Room Air Room Air Room Air Room Air 05/11/18 05/11/18 05/11/18 05/11/18 12:45 13:00 13:15 13:30 Pulse 62 60 63 64 Resp 18 18 18 18 B/P (MAP) 113/74 (87) 120/77 (91) 115/73 (87) 116/79 (91) Pulse Ox 99 99 98 99 O2 Delivery Room Air Room Air Room Air Room Air 05/11/18 05/11/18 05/11/18 05/11/18 13:45 14:00 14:15 14:20 Pulse 60 68 64 57 Resp 18 18 18 18 B/P (MAP) 120/79 (93) 115/77 (90) 120/80 (93) 115/77 (90) Pulse Ox 100 100 100 99 O2 Delivery Room Air Room Air Room Air Room Air 05/11/18 05/11/18 05/11/18 05/11/18 14:30 14:45 15:00 15:15 Temp 98.9 Pulse 55 57 78 60 Resp 18 18 18 18 B/P (MAP) 105/63 (77) 111/71 (84) 124/97 (106) 115/69 (84) Pulse Ox 99 100 100 100 O2 Delivery Room Air Room Air Room Air Room Air 05/11/18 05/11/18 05/11/18 05/11/18 15:30 15:45 16:12 16:21 Pulse 64 65 63 75 Resp 18 20 20 20 B/P (MAP) 121/78 (92) 119/73 (88) 119/57 (77) 126/59 (81) Pulse Ox 93 99 99 99 O2 Delivery Room Air Room Air Room Air Room Air 05/11/18 05/11/18 05/11/18 05/11/18 16:31 16:41 16:51 17:00 Pulse 78 71 74 83 Resp 18 18 18 18 B/P (MAP) 127/68 (87) 139/67 (91) 124/73 (90) 118/67 (84) O2 Delivery Room Air Room Air Room Air Room Air 05/11/18 05/11/18 05/11/18 05/11/18 17:10 17:17 17:47 18:17 Pulse 77 77 68 94 Resp 18 18 18 18 B/P (MAP) 116/71 (86) 125/69 (87) 116/67 (83) 111/83 (92) O2 Delivery Room Air Room Air Room Air Room Air 05/11/18 05/12/18 05/12/18 05/12/18 20:55 00:12 04:55 08:15 Temp 98.5 98.1 96.8 97.6 Pulse 62 53 55 68 Resp 18 18 18 18 B/P (MAP) 101/60 (74) 109/72 (84) 106/62 (77) 123/76 (92) Pulse Ox 98 98 97 100 O2 Delivery Room Air Room Air Room Air Room Air Physical Exam: General - Alert and oriented, no apparent distress Abdomen - Soft, appropriately tender to palpation, non-distended, fundus firm at umbilicus Extremities - no edema, negative Kelsea's bilaterally Assessment: PPD 1 NVD Acute blood loss anemia Plan: Routine care. Encourage breast feeding. Encourage ambulation. Ferrous sulfate supplementation. Plan for discharge today pending release Vitals - Labs Vital Signs - I&O Vital Signs Date Time Temp Pulse Resp B/P (MAP) Pulse Ox O2 Delivery O2 Flow Rate FiO2 05/12/18 08:15 97.6 68 18 123/76 (92) 100 Room Air 05/12/18 04:55 96.8 55 18 106/62 (77) 97 Room Air 05/12/18 00:12 98.1 53 18 109/72 (84) 98 Room Air 05/11/18 20:55 98.5 62 18 101/60 (74) 98 Room Air 05/11/18 18:17 94 18 111/83 (92) Room Air 05/11/18 17:47 68 18 116/67 (83) Room Air 05/11/18 17:17 77 18 125/69 (87) Room Air 05/11/18 17:10 77 18 116/71 (86) Room Air 05/11/18 17:00 83 18 118/67 (84) Room Air 05/11/18 16:51 74 18 124/73 (90) Room Air 05/11/18 16:41 71 18 139/67 (91) Room Air 05/11/18 16:31 78 18 127/68 (87) Room Air 05/11/18 16:21 75 20 126/59 (81) 99 Room Air 05/11/18 16:12 63 20 119/57 (77) 99 Room Air 05/11/18 15:45 65 20 119/73 (88) 99 Room Air 05/11/18 15:30 64 18 121/78 (92) 93 Room Air 05/11/18 15:15 98.9 60 18 115/69 (84) 100 Room Air 05/11/18 15:00 78 18 124/97 (106) 100 Room Air 05/11/18 14:45 57 18 111/71 (84) 100 Room Air 05/11/18 14:30 55 18 105/63 (77) 99 Room Air 05/11/18 14:20 57 18 115/77 (90) 99 Room Air 05/11/18 14:15 64 18 120/80 (93) 100 Room Air 05/11/18 14:00 68 18 115/77 (90) 100 Room Air 05/11/18 13:45 60 18 120/79 (93) 100 Room Air 05/11/18 13:30 64 18 116/79 (91) 99 Room Air 05/11/18 13:15 63 18 115/73 (87) 98 Room Air 05/11/18 13:00 60 18 120/77 (91) 99 Room Air 05/11/18 12:45 62 18 113/74 (87) 99 Room Air 05/11/18 12:30 78 18 113/77 (89) 99 Room Air 05/11/18 12:15 75 20 113/78 (90) 99 Room Air 05/11/18 12:10 64 18 116/74 (88) 100 Room Air 05/11/18 12:03 86 18 117/78 (91) 100 Room Air 05/11/18 12:00 67 20 114/73 (87) 100 Room Air 05/11/18 11:56 67 20 114/73 (87) 100 Room Air 05/11/18 11:52 75 20 116/71 (86) 100 Room Air 05/11/18 11:48 70 18 113/74 (87) 100 Room Air 05/11/18 11:45 79 18 122/78 (93) 100 Room Air 05/11/18 11:40 68 18 120/76 (91) 100 Room Air 05/11/18 11:35 89 18 141/93 (109) 100 Room Air 05/11/18 11:30 93 18 130/88 (102) 100 Room Air 05/11/18 11:15 63 18 107/70 (82) Room Air 05/11/18 11:00 64 18 129/76 (93) Room Air 05/11/18 10:15 67 18 121/79 (93) Room Air 05/11/18 09:45 75 18 120/70 (87) Room Air Labs Laboratory Tests 05/11/18 09:40: White Blood Count 7.6, Red Blood Count 3.71L, Hemoglobin 11.6, Hematocrit 35, Mean Corpuscular Volume 95, Mean Corpuscular Hemoglobin 31, Mean Corpuscular Hemoglobin Concent 33, Red Cell Distribution Width 13.4, Platelet Count 178, Mean Platelet Volume 11.0H, Neutrophils (%) (Auto) 72, Lymphocytes (%) (Auto) 18 , Monocytes (%) (Auto) 10, Eosinophils (%) (Auto) 0, Basophils (%) (Auto) 0, Neutrophils # (Auto) 5.5, Lymphocytes # (Auto) 1.4, Monocytes # (Auto) 0.7, Eosinophils # (Auto) 0.0, Basophils # (Auto) 0.0 05/11/18 12:30: Urine Color YELLOW, Urine Clarity CLEAR, Urine pH 6.5, Urine Specific [place] 1.010L, Urine Protein NEGATIVE, Urine Glucose (UA) NEGATIVE, Urine Ketones NEGATIVE, Urine Nitrite NEGATIVE, Urine Bilirubin NEGATIVE, Urine Urobilinogen NORMAL, Urine Leukocyte Esterase NEGATIVE, Urine RBC (Auto) NEGATIVE, Urine RBC NONE, Urine WBC NONE, Urine Squamous Epithelial Cells 2-5, Urine Crystals NONE, Urine Bacteria NEGATIVE, Urine Casts NONE, Urine Mucus NEGATIVE, Urine Culture Indicated NO 05/12/18 08:10: White Blood Count 9.7, Red Blood Count 3.49L, Hemoglobin 11.1L, Hematocrit 33L, Mean Corpuscular Volume 95, Mean Corpuscular Hemoglobin 32, Mean Corpuscular Hemoglobin Concent 33, Red Cell Distribution Width 13.5, Platelet Count 171, Mean Platelet Volume 10.7H, Neutrophils (%) (Auto) 80H, Lymphocytes (%) (Auto) 12, Monocytes (%) (Auto) 7, Eosinophils (%) (Auto) 0, Basophils (%) (Auto) 0, Neutrophils # (Auto) 7.7, Lymphocytes # (Auto) 1.2, Monocytes # (Auto) 0.7, Eosinophils # (Auto) 0.0, Basophils # (Auto) 0.0 Microbiology 05/11/18 Urine Culture - Final, Complete See Report ILEANA MORRIS DO May 12, 2018 09:25
[2018-05-12 12:30] VITALS: BP 102/64
--- NOTE | 2018-05-12 12:50 | Anesthesia-Regional Post-Op ---
Regional Patient Condition Mental Status: Alert, Oriented x3 Circulation: Same as Pre-Op Headache: Absent Sensation: Full Recovery Motor Block: Absent Post Op Complications Complications None Follow Up Care/Instructions Patient Instructions None needed. Anesthesia/Patient Condition Patient is doing well, no complaints, stable vital signs, no apparent adverse anesthesia problems. No complications reported per nursing. D/C home per [facility] [place] Criteria: Yes MARISA GAY CRNA May 12, 2018 12:50
[2018-05-12 16:30] VITALS: BP 106/67
[2018-05-12 18:25] VITALS: BP 106/67
== END 2018-05-12 18:25 | disposition home or self-care (01) | DRG 806 ==
LOC: WSo 07:42 → LDRP 07:43 → WSo 09:25 → LDRP 09:26
PROVIDERS: ADMIT Obstetrics & Gynecology; ATTEND Obstetrics & Gynecology
PROC: 10E0XZZ Delivery of Products of Conception, External Approach (ICD-10-PCS; principal; 2018-05-11)
DX: O69.81X0 Labor and delivery complicated by cord around neck, without compression, not applicable or unspecified (principal); O69.82X0 Labor and delivery complicated by other cord entanglement, without compression, not applicable or unspecified; O90.81 Anemia of the puerperium; D62 Acute posthemorrhagic anemia; Z3A.38 38 weeks gestation of pregnancy; Z37.0 Single live birth; Z87.59 Personal history of other complications of pregnancy, childbirth and the puerperium
CPT/HCPCS: 36415; 81000; 85025; 86850; 86900; 86901; 87088; 99212